=== PATIENT | male | born 2000 | race Hispanic/Latino ===

== ENCOUNTER 2023-04-04 02:38 | Emergency (ER) | payer SELFPAY | END 2023-04-04 03:10 | disposition home or self-care (01) | LOC: CSHERS 02:38 | DX: L02.214 Cutaneous abscess of groin (principal); L73.9 Follicular disorder, unspecified | CPT/HCPCS: 99282 ==

== ENCOUNTER 2024-06-10 02:18 | Emergency (ER) | payer SELFPAY ==
[2024-06-10] MEDS ORDERED: Ketorolac Tromethamine 30 MG (1 mL) VIAL ONE (02:54)
[2024-06-10] MEDS ORDERED: Ondansetron PF 4 MG/2 ML Vial ONE (02:54)
[2024-06-10] MEDS ORDERED: Famotidine/PF 20 mg/2ml Vial ONE (02:55)
[2024-06-10 03:29] LABS: #Basophils 0.02 10x3/uL (0.0-0.2); #Eosinophils 0.06 10x3/uL (0.0-0.5); #Monocytes 0.73 10x3/uL (0.0-1.1); #Neutrophils 4.21 10x3/uL (1.5-8.4); %Basophils 0.3 % (0.0-2.0); %Lymphocytes 14.9 % (18.0-47.0); %Monocytes 12.2 % (0.0-10.0); %Neutrophils 70.8 % (40.0-75.0); Hematocrit 46.9 % (38.8-50.0); Hemoglobin 15.6 g/dL (13.5-17.5); Mean Corpuscular HGB CONC 33.3 g/dL (32.0-36.0); Mean Corpuscular Volume 87.2 fL (81.2-95.1); Mean Platelet Volume 10.3 fL (7.4-10.4); Platelet Count 220 10x3/uL (150-450); RBC Distribution Width 12.1 % (11.5-14.5); Red Blood Cell (RBC) Count 5.38 10x6/uL (4.32-5.72)
[2024-06-10 03:44] LABS: ALT (SGPT) 12 U/L (8-55); AST (SGOT) 17 U/L (5-34); Albumin 3.4 g/dL (3.5-5.0); Alkaline Phosphatase 46 U/L (40-110); Anion Gap 14 mmol/L (10-20); BUN (Urea Nitrogen) 14 mg/dL (8.9-20.6); Bilirubin, Total 0.4 mg/dL (0.2-1.2); Calc. Creatinine Clearance 0 mL/min (70-130); Calcium 8.7 mg/dL (7.8-10.44); Carbon Dioxide 25 mmol/L (22-29); Chloride 98 mmol/L (98-107); Estimated GFR 96; Globulin 3.2 g/dL (2.4-3.5); Glucose 81 mg/dL (70-105); Lipase 24 U/L (8-78); Potassium 3.5 mmol/L (3.5-5.1); Protein, Total 6.6 g/dL (6.0-8.3); Sodium 133 mmol/L (136-145)
== END 2024-06-10 04:14 | disposition home or self-care (01) ==
LOC: CSHERS 02:18
DX: R11.2 Nausea with vomiting, unspecified (principal); R19.7 Diarrhea, unspecified
CPT/HCPCS: 80053; 83690; 85025; 96374; 96375; J1885; J2405; J3490

== ENCOUNTER 2024-08-11 20:10 | Emergency (ER) | payer SELFPAY | END 2024-08-11 20:57 | disposition home or self-care (01) | LOC: CSHERS 20:10 | DX: K11.20 Sialoadenitis, unspecified (principal) | CPT/HCPCS: 99283 ==